=== PATIENT | female | born 1960 | race Hispanic/Latino ===

== ENCOUNTER → 2024-09-03 | Outpatient (CLI) | payer MEDICAID ==
[~2024-09-03] MED LIST: CLIN-141 PO; HYDR-4060 PO; METR500T PO; POLY17PO4 PO
== END | disposition home or self-care (01) ==
LOC: RAH 11:24
PROVIDERS: ATTEND Family Medicine
DX: Z12.31 Encounter for screening mammogram for malignant neoplasm of breast (principal)
CPT/HCPCS: 77067